=== PATIENT | male | born 1945 | race Caucasian/White ===

== ENCOUNTER 2018-05-03 09:59 | Outpatient (CLI) | payer MEDICARE, OTHER ==
[~2018-05-03 09:59] MED LIST: ISOVUE-370 76%-LOCM 1 ML ONE
--- NOTE | 2018-05-03 16:26 | CT ---
CT ABDOMEN AND PELVIS WITH IV CONTRAST: 05/03/18 Multiple axial tomograms obtained through the abdomen and pelvis with IV enhancement. Oral contrast w as given. INDICATIONS: History of rectal cancer. History of prostate CA with seed implants. Irregular bowel habits. Comparison made to CT abdomen and pelvis from [facility] 05/04/17. FINDINGS: Lung bases clear. Liver, spleen and pancreas unremarkable. Peripherally calcified gallstone in neck of the gallbladder is again seen, not significantly changed in size and appearance from prior study. No evidence of christy cholecystic edema. Adrenal glands normal. Kidneys unremarkable. There is mild perinephric stranding which is stable from the prior exam. Small bowel loops appear normal. The appendix is identified and unremarkable. Stool throughout the co bea. There is luminal narrowing in the rectosigmoid region with evidence of anastomosis in the upper sigmoid. Mucosa is not adequately evaluated. Suggest correlation with colonoscopy to rule out mucosal abnormalities. Urinary bladder mildly distended and evidence of mild bladder wall thickening, stable. Prostatic seed implants again noted. Aorta normal caliber with atherosclerotic calcification. Mild nonspecific periaortic lymph nodes are stable and are subcentimeter. Postoperative changes in lumbar spine with degenerative changes in the lumbar spine. Postoperative ch anges at the left hip. No lytic or blastic osseous process identified. IMPRESSION: 1. Stable CT findings when compared to prior study. The rectum and sigmoid is nondistended and n ot adequately evaluated. Consider elective colonoscopy. 2. Cholelithiasis again noted. POS: [facility]
== END 2018-05-03 10:00 | disposition home or self-care (01) ==
LOC: BICCT 09:59
PROVIDERS: ATTEND Internal Medicine Gastroenterology
DX: C20 Malignant neoplasm of rectum (principal); D12.6 Benign neoplasm of colon, unspecified; R19.4 Change in bowel habit; K80.20 Calculus of gallbladder without cholecystitis without obstruction; Z85.038 Personal history of other malignant neoplasm of large intestine
CPT/HCPCS: 74177

== ENCOUNTER 2020-09-29 12:37 | Outpatient (CLI) | payer MEDICARE, OTHER ==
[~2020-09-29 12:37] MED LIST changes: -ISOVUE-370 76%-LOCM 1 ML ONE; +Iopamidol 370 76% 100 ML VIAL ONE
== END 2020-09-29 12:38 | disposition home or self-care (01) ==
LOC: BICCT 12:37
PROVIDERS: ATTEND Internal Medicine Cardiovascular Disease
DX: N30.91 Cystitis, unspecified with hematuria (principal); N28.1 Cyst of kidney, acquired; N40.0 Benign prostatic hyperplasia without lower urinary tract symptoms; K80.20 Calculus of gallbladder without cholecystitis without obstruction; Z90.49 Acquired absence of other specified parts of digestive tract; Z98.1 Arthrodesis status
CPT/HCPCS: 74178; 82565; Q9967

== ENCOUNTER 2020-11-09 13:18 | Outpatient (CLI) | payer MEDICARE, OTHER ==
[2020-11-09 15:37] LABS: #Eosinphils 0.1 10x3/uL (0.0-0.5); #Monocytes 0.4 10x3/uL (0.0-1.1); #Neutrophils 4.9 10x3/uL (1.5-8.4); %Basophils 0.5 % (0.0-2.0); %Eosinophils 2.1 % (0.0-6.0); %Lymphocytes 17.9 % (18.0-47.0); %Monocytes 6.2 % (0.0-10.0); Hemoglobin 16.2 g/dL (13.5-17.5); Mean Corpuscular HGB CONC 32.9 g/dL (32.0-36.0); Mean Corpuscular Hemoglobin 30.9 pg (27.0-33.0); Mean Corpuscular Volume 94.1 fl (81.2-95.1); Mean Platelet Volume 11.3 fl (7.4-10.4); Platelet Count 185 10x3/uL (150-450); Red Blood Cell (RBC) Count 5.24 10x6/uL (4.32-5.72); White Blood Cell (WBC) Count 6.6 10x3/uL (3.5-10.5)
[2020-11-09 16:13] LABS: ALT (SGPT) 29 U/L (8-55); AST (SGOT) 23 U/L (5-34); Albumin 4.1 g/dL (3.4-4.8); Alkaline Phosphatase 89 U/L (40-110); Anion Gap 15 mmol/L (10-20); BUN (Urea Nitrogen) 21 mg/dL (8.4-25.7); Bilirubin, Total 1.6 mg/dL (0.2-1.2); Calc. Creatinine Clearance 0 mL/min (70-130); Calcium 9.5 mg/dL (7.8-10.44); Carbon Dioxide 22 mmol/L (23-31); Chloride 108 mmol/L (98-107); Globulin 2.5 g/dL (2.4-3.5); Glucose 137 mg/dL (83-110); Potassium 4.5 mmol/L (3.5-5.1); Protein, Total 6.6 g/dL (5.8-8.1); Sodium 140 mmol/L (136-145)
[2020-11-10 02:13] LABS: SARS-CoV-2 PCR by NAA Not Detected (NotDetected)
== END 2020-11-09 13:19 | disposition home or self-care (01) ==
LOC: LABBT 13:18
PROVIDERS: ATTEND Internal Medicine Cardiovascular Disease
DX: Z01.812 Encounter for preprocedural laboratory examination (principal); Z20.822 Contact with and (suspected) exposure to COVID-19
CPT/HCPCS: 80053; 85025; U0003; U0005; 87635

== ENCOUNTER 2020-11-12 09:28 | Day surgery (SDC) | payer MEDICARE, OTHER ==
[2020-11-11 11:56] VITALS: BMI 32.8
[2020-11-12] MEDS ORDERED: Verapamil 5 MG/2 ML VIAL ONE (11:32)
[2020-11-12] MEDS ORDERED: Adenosine 6 MG/2 ML VIAL ONE (11:32)
[2020-11-12] MEDS ORDERED: Heparin 10,000 UNITS/ 10 ML VIAL ONE (11:32)
[2020-11-12] MEDS ORDERED: Nitroglycerin 100MG/250ML BOT 0 ML ONE (11:32)
[2020-11-12] MEDS ORDERED: Lidocaine 1% (PF) 30 ML VIAL ONE (11:32)
[2020-11-12] MEDS ORDERED: Fentanyl 100 MCG/2 ML VIAL ONE (12:37)
[2020-11-12] MEDS ORDERED: Midazolam HCl 2 mg/2 ml Vial ONE (12:38)
== END 2020-11-12 17:47 | disposition home or self-care (01) ==
LOC: CCL 09:28
PROVIDERS: ATTEND Internal Medicine Cardiovascular Disease
PROC: 4A023N7 Measurement of Cardiac Sampling and Pressure, Left Heart, Percutaneous Approach (ICD-10-PCS; principal; 2020-11-12)
PROC: B2111ZZ Fluoroscopy of Multiple Coronary Arteries using Low Osmolar Contrast (ICD-10-PCS; 2020-11-12)
DX: I25.10 Atherosclerotic heart disease of native coronary artery without angina pectoris (principal); I48.19 Other persistent atrial fibrillation; K21.9 Gastro-esophageal reflux disease without esophagitis; E78.5 Hyperlipidemia, unspecified; I10 Essential (primary) hypertension; F17.220 Nicotine dependence, chewing tobacco, uncomplicated; Z79.01 Long term (current) use of anticoagulants; Z79.899 Other long term (current) drug therapy
CPT/HCPCS: 76942; 93458; 99152; 99153; J0153; J1644; J2001; J2250; J3010; Q9967

== ENCOUNTER 2021-12-21 10:39 | Outpatient (CLI) | payer MEDICARE, OTHER ==
[2021-12-21 11:42] LABS: Hemoglobin 16.8 g/dL (13.5-17.5); Mean Corpuscular HGB CONC 33.9 g/dL (32.0-36.0); Mean Corpuscular Hemoglobin 31.3 pg (27.0-33.0); Mean Corpuscular Volume 92.5 fl (81.2-95.1); Mean Platelet Volume 10.7 fl (7.4-10.4); Platelet Count 193 10x3/uL (150-450); Red Blood Cell (RBC) Count 5.36 10x6/uL (4.32-5.72); White Blood Cell (WBC) Count 6.2 10x3/uL (3.5-10.5)
[2021-12-21 12:16] LABS: Anion Gap 17 mmol/L (10-20); Calcium 9.3 mg/dL (7.8-10.44); Carbon Dioxide 22 mmol/L (23-31); Chloride 105 mmol/L (98-107); Potassium 4.5 mmol/L (3.5-5.1); Sodium 139 mmol/L (136-145)
[2021-12-21 12:43] LABS: BUN (Urea Nitrogen) 21 mg/dL (8.4-25.7); Calc. Creatinine Clearance 0 mL/min (70-130); Glucose 156 mg/dL (83-110)
== END 2021-12-21 10:40 | disposition home or self-care (01) ==
LOC: LABBT 10:39
PROVIDERS: ATTEND Urology
DX: Z01.818 Encounter for other preprocedural examination (principal); N43.3 Hydrocele, unspecified; Z20.822 Contact with and (suspected) exposure to COVID-19
CPT/HCPCS: 80048; 85027; 93005; U0003; U0005; 93010

== ENCOUNTER 2021-12-24 07:06 | Day surgery (SDC) | payer MEDICARE, OTHER ==
[2021-12-21 12:44] VITALS: BMI 32.8
[2021-12-24] MEDS ORDERED: Famotidine/PF 20 mg/2ml Vial ONE (09:20)
[2021-12-24] MEDS ORDERED: fentaNYL Citrate/PF 100 MCG/2 ML SYRINGE ONE (09:20)
[2021-12-24] MEDS ORDERED: CEFAZOLIN 2 GM VIAL ONE (09:24)
[2021-12-24] MEDS ORDERED: Sodium Chloride 0.9% 100 ML ONE (09:24)
[2021-12-24] MEDS ORDERED: Bupivacaine PF 0.5% 30 ML VIAL ONE (09:56)
[2021-12-24] MEDS ORDERED: Bacitracin Zinc Ointment 30 gm TUBE ONE (10:26)
== END 2021-12-24 13:06 | disposition home or self-care (01) ==
LOC: SDC 07:06
PROVIDERS: ATTEND Urology
PROC: 0VB60ZZ Excision of Right Tunica Vaginalis, Open Approach (ICD-10-PCS; principal; 2021-12-24)
DX: N43.3 Hydrocele, unspecified (principal); I48.91 Unspecified atrial fibrillation; Z85.038 Personal history of other malignant neoplasm of large intestine; Z79.01 Long term (current) use of anticoagulants; Z79.899 Other long term (current) drug therapy; Z90.49 Acquired absence of other specified parts of digestive tract
CPT/HCPCS: J0690; J3490; S0020; S0028